=== PATIENT | female | born 1940 | race Caucasian/White ===

== ENCOUNTER 2023-08-13 06:46 | Day surgery (SDC) | payer MEDICARE, OTHER, SELFPAY ==
[2023-08-06 09:07] VITALS: BMI 33.6
--- NOTE | 2023-08-07 12:29 | SUR.OPER ---
Patients 4/8 EKG abnormal- reviewed by Dr. Gonzales- no additional interventions required
[2023-08-13] VITALS (8 sets, daily range): BP systolic 134–155; BP diastolic 74–97; BMI 32.9
--- NOTE | 2023-08-13 12:23 | SUR.PHASEI ---
Dr. Watts made aware of sat's 89-94%, wide awake, using IS, deep breathing and okay to move to SDS.
== END 2023-08-13 13:10 | disposition home or self-care (01) ==
LOC: GI 06:46
PROVIDERS: ATTENDING PHYSICIAN Internal Medicine Critical Care Medicine
DX: C7A.8 Other malignant neuroendocrine tumors (principal); R91.1 Solitary pulmonary nodule
CPT/HCPCS: 31629; 31623; 31627; 31652; 31624; 31645; 88172; 88173; 88305; 71045; 76000; 88112; 88177; 88333; 88341; 88342; 94640; C1887

== ENCOUNTER → 2023-09-26 10:51 | Outpatient (REF) | payer MEDICARE, OTHER, SELFPAY | LOC: RAD 10:51 | PROVIDERS: ATTENDING PHYSICIAN Internal Medicine Hematology & Oncology; FAMILY PHYSICIAN Nurse Practitioner | DX: C7A.090 Malignant carcinoid tumor of the bronchus and lung (principal) | CPT/HCPCS: 74170; Q9967 ==

== ENCOUNTER → 2024-01-28 10:00 | Outpatient (REF) | payer MEDICARE, OTHER, SELFPAY | LOC: RAD 10:00 | PROVIDERS: ATTENDING PHYSICIAN Radiology Radiation Oncology; FAMILY PHYSICIAN Nurse Practitioner | DX: C34.11 Malignant neoplasm of upper lobe, right bronchus or lung (principal) | CPT/HCPCS: 71250 ==

== ENCOUNTER → 2024-03-24 09:06 | Outpatient (REF) | payer MEDICARE, OTHER, SELFPAY ==
[2024-03-24 10:39] LABS: ALT (SGPT) 25 U/L (0-35); AST (SGOT) 30 U/L (14-36); Albumin 4.7 g/dl (3.5-5.0); Alkaline Phosphatase 79 U/L (38-126); Blood Urea Nitrogen 19 mg/dl (7-17); Calcium 9.3 mg/dl (8.4-10.2); Carbon Dioxide 26 mmol/L (22-30); Chloride 103 mmol/L (98-107); Glucose 93 mg/dl (70-99); HDL Cholesterol 68 mg/dl; LDL Cholesterol, Calculated 95 mg/dl; Potassium 4.9 mmol/L (3.5-5.1); Sodium 142 mmol/L (135-145); Total Bilirubin 0.7 mg/dl (0.2-1.3); Total Cholesterol 181 mg/dl (50-199); Total Protein 7.4 g/dl (6.3-8.2); Triglyceride 93 mg/dl (10-149); Very Low Density Lipoprotein 18 mg/dl (0-30); eGFR > 60.00
== END ==
LOC: REG 09:06
PROVIDERS: ATTENDING PHYSICIAN Nurse Practitioner
DX: Z00.00 Encounter for general adult medical examination without abnormal findings (principal); R91.1 Solitary pulmonary nodule
CPT/HCPCS: 36415; 80053; 80061

== ENCOUNTER → 2024-05-07 14:04 | Outpatient (REF) | payer MEDICARE, OTHER, SELFPAY | LOC: HWRAD 14:04 | PROVIDERS: ATTENDING PHYSICIAN Radiology Radiation Oncology; FAMILY PHYSICIAN Nurse Practitioner | DX: C34.11 Malignant neoplasm of upper lobe, right bronchus or lung (principal) | CPT/HCPCS: 71250 ==

== ENCOUNTER → 2024-09-03 11:21 | Outpatient (REF) | payer MEDICARE, OTHER, SELFPAY | LOC: RAD 11:21 | PROVIDERS: ATTENDING PHYSICIAN Radiology Radiation Oncology; FAMILY PHYSICIAN Nurse Practitioner | DX: C34.11 Malignant neoplasm of upper lobe, right bronchus or lung (principal) | CPT/HCPCS: 71250 ==

== ENCOUNTER → 2025-03-02 10:52 | Outpatient (REF) | payer MEDICARE, OTHER, SELFPAY | LOC: RAD 10:52 | PROVIDERS: ATTENDING PHYSICIAN Radiology Radiation Oncology; FAMILY PHYSICIAN Nurse Practitioner | DX: C34.11 Malignant neoplasm of upper lobe, right bronchus or lung (principal) | CPT/HCPCS: 71250 ==